=== PATIENT | female | born 1990 | race Caucasian/White ===

== ENCOUNTER 2018-09-06 19:33 | Emergency (ER) | payer OTHER ==
[~2018-09-06] VITALS: Ht 160 cm; Wt 61.2 kg
== END 2018-09-07 20:43 | disposition left against medical advice (07) ==
LOC: ER 19:33
DX: R42 Dizziness and giddiness (principal); T39.012A Poisoning by aspirin, intentional self-harm, initial encounter; Y92.89 Other specified places as the place of occurrence of the external cause

== ENCOUNTER → 2019-04-25 | Outpatient (CLI) | payer OTHER | END | disposition home or self-care (01) | LOC: PRENATAL 04-24 14:00 | DX: O28.3 Abnormal ultrasonic finding on antenatal screening of mother (principal); O98.512 Other viral diseases complicating pregnancy, second trimester; A92.5 Zika virus disease ==

== ENCOUNTER 2019-05-12 18:07 | Outpatient (CLI) | payer OTHER | END 2019-05-13 18:45 | disposition home or self-care (01) | LOC: OBS/DEL 18:07 | DX: O26.892 Other specified pregnancy related conditions, second trimester (principal); R10.31 Right lower quadrant pain; Z34.02 Encounter for supervision of normal first pregnancy, second trimester; O35.8XX0 Maternal care for other (suspected) fetal abnormality and damage, not applicable or unspecified ==

== ENCOUNTER 2019-07-08 11:09 | Outpatient (CLI) | payer OTHER | END 2019-07-08 12:00 | disposition home or self-care (01) | LOC: PRENATAL 11:09 | DX: O26.843 Uterine size-date discrepancy, third trimester (principal); O99.113 Other diseases of the blood and blood-forming organs and certain disorders involving the immune mechanism complicating pregnancy, third trimester ==

== ENCOUNTER 2019-08-18 15:00 | Inpatient (IN) | payer OTHER ==
[~2019-08-18] VITALS: Ht 160 cm; Wt 77.6 kg
[2019-09-02] MEDS ORDERED: PRENATAL TABLE1 EAC1 PO (17:43)
== END 2019-09-05 15:02 | disposition home or self-care (01) | DRG 807 ==
LOC: LDR 09-02 17:33 → OB/GYN 09-02 17:33
PROVIDERS: ADMIT Obstetrics & Gynecology
PROC: 4A1HXCZ Monitoring of Products of Conception, Cardiac Rate, External Approach (ICD-10-PCS; 2019-09-02)
PROC: 10E0XZZ Delivery of Products of Conception, External Approach (ICD-10-PCS; principal; 2019-09-03)
PROC: 0KQM0ZZ Repair Perineum Muscle, Open Approach (ICD-10-PCS; 2019-09-03)
PROC: 3E033VJ Introduction of Other Hormone into Peripheral Vein, Percutaneous Approach (ICD-10-PCS; 2019-09-03)
DX: O70.1 Second degree perineal laceration during delivery (principal); Z37.0 Single live birth; Z3A.39 39 weeks gestation of pregnancy

== ENCOUNTER 2020-05-06 11:28 | Emergency (ER) | payer OTHER ==
[~2020-05-06] VITALS: Ht 160 cm; Wt 69.4 kg
[~2020-05-06 11:28] MED LIST: PRENATAL TABLE1 EAC1 PO
== END 2020-05-06 21:52 | disposition home or self-care (01) ==
LOC: ER 11:28
DX: N83.291 Other ovarian cyst, right side (principal); M25.551 Pain in right hip; M54.5 Low back pain